=== PATIENT | female | born 1975 | race Caucasian/White ===

== ENCOUNTER 2017-01-30 19:30 | Emergency (ER) | payer OTHER ==
[~2017-01-30] VITALS: Ht 175.2 cm; Wt 113.4 kg
[~2017-01-30 19:30] MED LIST: ALBUTEROL0.09 MG/A2 IH; AMOXICILLIN500 M2 PO; AMOXICILLIN500 MG PO; ANAPROX DS550 MG PO; CLARITIN10 MG PO; CLEOCIN150 MG PO; CLINDAMYCIN HC300 MG PO; CLINDAMYCIN150 MG PO; CYCLOBENZAPRINE5 M3 PO; DARVOCET N 1001 TAB PO; DIFLUCAN150 MG PO; FLEXERIL10 MG PO; HYDROCODONE BIT1 T11 PO; IBUPROFEN 30 M800 MG PO; MACROBID100 M1 PO; MOTRIN400 MG PO; MOTRIN800 MG PO; Motrin,Rufen800 MG PO; NAPROSYN500 MG PO; NORCO 10-325 T1 EACH PO; PEN-VK500 MG PO; PREDNICOT20 MG PO; PREDNISONE10 MG PO; PROVENTIL0.09 MG/A1 INH; PYRIDIUM200 MG PO; TESSALON PERLE100 M1 PO; TESSALON PERLE200 MG PO; TYLENOL650 M1 PO; VIBRAMYCIN100 MG PO; VICODIN 5/500 505 MG PO; ZITHROMAX Z PA250 MG PO
[2017-01-30] MEDS ORDERED: CEFDINIR300 MG PO (20:32)
[2017-01-30] MEDS ORDERED: PROAIR HFA8.5 GM INH (20:32)
[2017-01-30] MEDS ORDERED: KETOROLAC10 MG PO (20:32)
[2017-01-30] MEDS ORDERED: PREDNISONE20 M1 PO (20:32)
[2017-01-30] MEDS ORDERED: PSEUDOEPHEDRINE60 MG PO (20:49)
[2017-01-30 20:53] VITALS: BP 132/74
== END 2017-01-30 20:54 | disposition home or self-care (01) ==
LOC: ED 19:30
DX: J32.9 Chronic sinusitis, unspecified (principal); J20.9 Acute bronchitis, unspecified; F17.200 Nicotine dependence, unspecified, uncomplicated; Z88.2 Allergy status to sulfonamides

== ENCOUNTER 2017-09-06 20:01 | Emergency (ER) | payer OTHER ==
[~2017-09-06] VITALS: Ht 175.2 cm; Wt 94.8 kg
[~2017-09-06 20:01] MED LIST changes: +CEFDINIR300 MG PO; +KETOROLAC10 MG PO; +PREDNISONE20 M1 PO; +PROAIR HFA8.5 GM INH; +PSEUDOEPHEDRINE60 MG PO
[2017-09-06 20:04] VITALS: BP 124/52
[2017-09-06] MEDS ORDERED: CYCLOBENZAPRINE5 M3 PO (20:45)
[2017-09-06] MEDS ORDERED: Motrin,Rufen800 MG PO (20:45)
[2017-09-06] MEDS ORDERED: DELTASONE20 M1 PO (20:45)
== END 2017-09-06 20:50 | disposition home or self-care (01) ==
LOC: ED 20:01
DX: M54.16 Radiculopathy, lumbar region (principal); F17.200 Nicotine dependence, unspecified, uncomplicated; Z88.2 Allergy status to sulfonamides

== ENCOUNTER 2017-12-10 17:48 | Emergency (ER) | payer OTHER ==
[~2017-12-10] VITALS: Ht 175.2 cm; Wt 102.1 kg
[~2017-12-10 17:48] MED LIST changes: +DELTASONE20 M1 PO
[2017-12-10 17:52] VITALS: BP 147/69
[2017-12-10] MEDS ORDERED: MEDROL DOSEPAK4 MG PO (19:10)
[2017-12-10] MEDS ORDERED: PROAIR HFA8.5 GM INH (19:10)
== END 2017-12-10 19:12 | disposition home or self-care (01) ==
LOC: ED 17:48
DX: J40 Bronchitis, not specified as acute or chronic (principal); F17.200 Nicotine dependence, unspecified, uncomplicated; Z98.51 Tubal ligation status; Z79.899 Other long term (current) drug therapy; Z88.2 Allergy status to sulfonamides

== ENCOUNTER 2018-02-14 16:26 | Emergency (ER) | payer OTHER ==
[~2018-02-14] VITALS: Ht 175.2 cm; Wt 113.4 kg
[~2018-02-14 16:26] MED LIST changes: +MEDROL DOSEPAK4 MG PO
[2018-02-14 16:28] VITALS: BP 125/71
[2018-02-14] MEDS ORDERED: AUGMENTIN 875875 MG PO (17:07)
== END 2018-02-14 17:30 | disposition home or self-care (01) ==
LOC: ED 16:26
DX: K02.9 Dental caries, unspecified (principal); Z98.51 Tubal ligation status; Z88.2 Allergy status to sulfonamides

== ENCOUNTER 2019-05-28 14:55 | Emergency (ER) | payer OTHER ==
[~2019-05-28] VITALS: Ht 172.7 cm; Wt 86.2 kg
--- NOTE | ~2019-05-28 | EKG ---
[place], [place] ELECTROCARDIOGRAM REPORT NAME: KIKI HOWE UNIT #: [id number] ROOM: DOCTOR: EPIPHANY DRAFT REPORT BIRTHDATE: [birth year] [facility] Test Date: 2019-05-28 Test Time: 15:01:33 Pat Name: KIKI HOWE Department: Room: Gender: [employer]: : 1975 Requested By: RICHARD HOOPER Order Number: [id number] Reading MD: Ricardo Escobedo MD Measurements Intervals [place] Rate: 61 P: 68 TX: 163 QRS: 54 QRSD: 84 T: 41 QT: 441 QTc: 445 Interpretive Statements Sinus rhythm Compared to ECG 05/16/2018 21:19:03 No significant changes Electronically Signed On 05-29-2019 4:49:47 PDT by Ricardo Escobedo MD CM:EKGRPT:ELECTROCARDIOGRAM REPORT [id number] RICHARD GOODMAN DRAFT REPORT RICHARD HOOPER M.D.
[~2019-05-28 14:55] MED LIST changes: +AUGMENTIN 875875 MG PO; +CYCLOBENZAPRINE10 MG PO; +MUCINEX1200 M1 PO; +PREDNISONE50 MG PO; +TESSALON PERLE100 MG PO
[2019-05-28 15:00] VITALS: BP 152/61
[2019-05-28 15:20] LABS: BASO # 0.1 10*3/uL (0.0-0.1); BASO % 0.9 % (0.0-1.0); EOS # 0.2 10*3/uL (0.0-0.4); EOS % 2.1 % (1.0-4.0); HEMATOCRIT 34.6 % (37.0-47.0); HEMOGLOBIN 10.4 g/dl (12.0-16.0); LYMPH # 2.3 10*3/uL (1.3-4.4); LYMPH % 28.3 % (27.0-41.0); MEAN CELL VOLUME 80.8 fl (81.0-99.0); MEAN CORPUSCULAR HGB 24.3 pg (27.0-31.0); MEAN CORPUSCULAR HGB CONC 30.1 g/dl (33.0-37.0); MEAN PLATELET VOLUME 10.3 fl (9.6-12.3); MONO # 0.7 10*3/uL (0.1-1.0); MONO % 8.7 % (3.0-9.0); NEUT # 4.8 10*3/uL (2.3-7.9); NEUT % 59.8 % (47.0-73.0); PLATELET COUNT AUTOMATED 375 10*3/uL (130-400); RED BLOOD COUNT 4.28 10*6/uL (4.10-5.10); RED CELL DISTRI WIDTH 15.6 % (0-14.5); WHITE BLOOD COUNT 8.1 10*3/uL (4.8-10.8)
[2019-05-28 15:30] LABS: ACT PARTIAL THROMBO TIME 25.1 SECONDS (20.0-32.1); INTERNATIONAL NORM RATIO 0.9 (2.0-3.5)
[2019-05-28 15:37] LABS: ALBUMIN 3.4 gm/dl (3.1-4.5); ALKALINE PHOSPHATASE 88 U/L (45-117); BUN 12 mg/dl (7-24); CHLORIDE 108 mmol/L (98-107); CREATININE 0.72 mg/dL (0.55-1.02); POTASSIUM 3.4 mmol/L (3.5-5.1); SGOT/AST 13 IU/L (3-35); SGPT/ALT 19 U/L (12-78); SODIUM 140 mmol/L (136-145); TOTAL PROTEIN 6.7 gm/dL (6.4-8.2); TROPONIN I < 0.015 ng/ml (<0.045)
[2019-05-28] MEDS ORDERED: DELTASONE20 M1 PO (16:45)
[2019-05-28] MEDS ORDERED: MUCINEX1200 M1 PO (16:45)
[2019-05-28] MEDS ORDERED: PROVENTIL HFA6.7 GM INH (16:45)
[2019-05-28] MEDS ORDERED: ALLEGRA ALLERG180 M2 PO (16:45)
== END 2019-05-28 17:15 | disposition home or self-care (01) ==
LOC: ED 14:55
PROVIDERS: Emergency Medicine
DX: J20.9 Acute bronchitis, unspecified (principal); F17.200 Nicotine dependence, unspecified, uncomplicated; Z88.2 Allergy status to sulfonamides

== ENCOUNTER 2019-06-05 15:15 | Emergency (ER) | payer OTHER ==
[~2019-06-05] VITALS: Ht 170.1 cm; Wt 86.2 kg
[~2019-06-05 15:15] MED LIST changes: +ALLEGRA ALLERG180 M2 PO; +PROVENTIL HFA6.7 GM INH
[2019-06-05 15:18] VITALS: BP 121/61
[2019-06-05 16:15] LABS: BASO % 0.4 % (0.0-1.0); EOS # 0.3 10*3/uL (0.0-0.4); EOS % 3.1 % (1.0-4.0); HEMATOCRIT 35.7 % (37.0-47.0); HEMOGLOBIN 10.6 g/dl (12.0-16.0); LYMPH # 2.3 10*3/uL (1.3-4.4); LYMPH % 22.2 % (27.0-41.0); MEAN CORPUSCULAR HGB CONC 29.7 g/dl (33.0-37.0); MEAN PLATELET VOLUME 9.7 fl (9.6-12.3); MONO # 1.3 10*3/uL (0.1-1.0); MONO % 11.9 % (3.0-9.0); NEUT # 6.5 10*3/uL (2.3-7.9); NEUT % 61.6 % (47.0-73.0); PLATELET COUNT AUTOMATED 437 10*3/uL (130-400); RED BLOOD COUNT 4.41 10*6/uL (4.10-5.10); RED CELL DISTRI WIDTH 15.7 % (0-14.5); WHITE BLOOD COUNT 10.5 10*3/uL (4.8-10.8)
[2019-06-05 16:30] LABS: ALBUMIN 3.3 gm/dl (3.1-4.5); ALKALINE PHOSPHATASE 81 U/L (45-117); BUN 14 mg/dl (7-24); CHLORIDE 107 mmol/L (98-107); CREATININE 0.82 mg/dL (0.55-1.02); LIPASE 136 U/L (73-393); POTASSIUM 4.2 mmol/L (3.5-5.1); SGOT/AST 6 IU/L (3-35); SGPT/ALT 14 U/L (12-78); SODIUM 138 mmol/L (136-145); TOTAL PROTEIN 6.7 gm/dL (6.4-8.2)
[2019-06-05 16:38] LABS: INTERNATIONAL NORM RATIO 0.9 (2.0-3.5); TROPONIN I < 0.015 ng/ml (<0.045)
[2019-06-05] MEDS ORDERED: AUGMENTIN 875-875 MG PO (17:00)
[2019-06-05] MEDS ORDERED: TUSSIN DM COUG PO (17:01)
== END 2019-06-05 17:35 | disposition home or self-care (01) ==
LOC: ED 15:15
PROVIDERS: Nurse Practitioner Family
DX: K02.9 Dental caries, unspecified (principal); J18.9 Pneumonia, unspecified organism; Z88.2 Allergy status to sulfonamides

== ENCOUNTER 2019-11-24 15:16 | Emergency (ER) | payer OTHER ==
[~2019-11-24] VITALS: Ht 172.7 cm; Wt 79.4 kg
[~2019-11-24 15:16] MED LIST changes: +AUGMENTIN 875-875 MG PO; +TUSSIN DM COUG PO
[2019-11-24 15:29] VITALS: BP 115/60
[2019-11-24] MEDS ORDERED: NAPROSYN500 MG PO (16:09)
[2019-11-24] MEDS ORDERED: PENICILLIN-VK500 MG PO (16:09)
[2019-11-24] MEDS ORDERED: TYLENOL325 M1 PO (16:09)
== END 2019-11-24 16:19 | disposition home or self-care (01) ==
LOC: ED 15:16
DX: K04.7 Periapical abscess without sinus (principal); Z88.2 Allergy status to sulfonamides

== ENCOUNTER 2020-05-20 17:51 | Emergency (ER) | payer OTHER ==
[~2020-05-20] VITALS: Ht 175.2 cm; Wt 95.3 kg
[~2020-05-20 17:51] MED LIST changes: +PENICILLIN-VK500 MG PO; +TYLENOL325 M1 PO
[2020-05-20 17:59] VITALS: BP 128/71
[2020-05-20] MEDS ORDERED: Motrin,Rufen800 MG PO (18:11)
[2020-05-20] MEDS ORDERED: ROBAXIN-750750 MG PO (18:11)
== END 2020-05-20 18:24 | disposition home or self-care (01) ==
LOC: ED 17:51
DX: M54.16 Radiculopathy, lumbar region (principal); Z88.2 Allergy status to sulfonamides

== ENCOUNTER → 2020-10-07 | Outpatient (CLI) | payer OTHER ==
[~2020-10-07] MED LIST changes: +ROBAXIN-750750 MG PO
== END | disposition home or self-care (01) ==
LOC: COVID19 15:53
PROVIDERS: ATTEND Family Medicine
DX: Z20.828 Contact with and (suspected) exposure to other viral communicable diseases (principal)

== ENCOUNTER 2021-01-24 18:13 | Emergency (ER) | payer OTHER ==
[2021-01-24 18:51] VITALS: BP 128/72
[2021-01-24] MEDS ORDERED: ROBAXIN-750750 MG PO (20:51)
[2021-01-24] MEDS ORDERED: PREDNISONE20 M1 PO (20:51)
== END 2021-01-24 21:07 | disposition home or self-care (01) ==
LOC: ED 18:13
DX: M54.42 Lumbago with sciatica, left side (principal); Z88.2 Allergy status to sulfonamides; Z79.899 Other long term (current) drug therapy; M79.605 Pain in left leg

== ENCOUNTER 2021-02-23 20:53 | Emergency (ER) | payer OTHER ==
[~2021-02-23] VITALS: Ht 175.2 cm; Wt 89.8 kg
[2021-02-23 20:54] VITALS: BP 123/64
[2021-02-23] MEDS ORDERED: AMOXICILLIN500 M2 PO (21:04)
== END 2021-02-23 21:18 | disposition home or self-care (01) ==
LOC: ED 20:53
DX: K08.89 Other specified disorders of teeth and supporting structures (principal); Z88.2 Allergy status to sulfonamides; Z79.899 Other long term (current) drug therapy; Z98.51 Tubal ligation status

== ENCOUNTER → 2021-08-18 | Outpatient (CLI) | payer OTHER | END | disposition home or self-care (01) | LOC: COVID19 17:28 | PROVIDERS: ATTEND Internal Medicine | DX: Z11.52 Encounter for screening for COVID-19 (principal) ==

== ENCOUNTER → 2021-10-25 | Outpatient (CLI) | payer OTHER | END | disposition home or self-care (01) | LOC: COVID19 16:41 | PROVIDERS: ATTEND Internal Medicine | DX: Z20.822 Contact with and (suspected) exposure to COVID-19 (principal) ==

== ENCOUNTER 2021-11-15 20:24 | Emergency (ER) | payer OTHER ==
[2021-11-15 20:33] VITALS: BP 11/83
[2021-11-15] MEDS ORDERED: PENICILLIN VK500 MG PO (20:41)
== END 2021-11-15 20:45 | disposition home or self-care (01) ==
LOC: ED 20:24
DX: K02.9 Dental caries, unspecified (principal); Z88.2 Allergy status to sulfonamides

== ENCOUNTER → 2022-03-22 | Outpatient (CLI) | payer OTHER ==
[~2022-03-22] MED LIST changes: +PENICILLIN VK500 MG PO
== END | disposition home or self-care (01) ==
LOC: COVID19 09:18
PROVIDERS: ATTEND Internal Medicine
DX: U07.1 COVID-19 (principal)

== ENCOUNTER 2022-09-23 18:43 | Emergency (ER) | payer OTHER ==
[~2022-09-23] VITALS: Ht 175.2 cm; Wt 83.9 kg
[2022-09-23 19:08] VITALS: BP 153/58
[2022-09-23] MEDS ORDERED: BENZONATATE100 M1 PO (22:18)
[2022-09-23] MEDS ORDERED: ZITHROMAX250 MG PO (22:18)
== END 2022-09-23 22:54 | disposition home or self-care (01) ==
LOC: ED 18:43
DX: J40 Bronchitis, not specified as acute or chronic (principal); Z20.822 Contact with and (suspected) exposure to COVID-19

== ENCOUNTER 2025-06-10 17:37 | Emergency (ER) | payer OTHER ==
[~2025-06-10] VITALS: Ht 175.2 cm; Wt 88.5 kg
[~2025-06-10 17:37] MED LIST changes: +BENZONATATE100 M1 PO; +ZITHROMAX250 MG PO
[2025-06-10 18:35] VITALS: BP 125/60
[2025-06-10] MEDS ORDERED: Amoxicillin/Clavulanate Pota 875 MG TAB PO ONE (19:35)
[2025-06-10] MEDS ORDERED: VENT7GM INH (19:35)
[2025-06-10] MEDS ORDERED: AMOX-CLAV 875-1 EACH PO (19:35)
== END 2025-06-10 21:33 | disposition home or self-care (01) ==
LOC: ED 17:37
DX: J22 Unspecified acute lower respiratory infection (principal); F17.200 Nicotine dependence, unspecified, uncomplicated; Z88.2 Allergy status to sulfonamides